=== PATIENT | male | born 1990 | race Caucasian/White ===

== ENCOUNTER 2024-08-09 15:56 | Emergency (ER) | payer SELFPAY ==
[~2024-08-09] VITALS: Ht 172.7 cm; Wt 68.0 kg
[2024-08-09 16:06] VITALS: BP 134/89; PULSE 81; RESP 15; TEMP 36.7; O2SAT 99
[2024-08-09] MEDS: LIDOCAINE HCL/PF 1% 10 MG/ML 5ML VIAL INFIL ONE (17:35)
[2024-08-09] MEDS ORDERED: CEPH500C2 MT (17:52)
[2024-08-09] MEDS: TETANUS, DIPHTHERIA, PERTUSSIS VAC/PF 0.5ML (>10YR OLD) IM ONE (18:58)
[2024-08-09] MEDS: BACITRACIN ZINC OINT UDPKT TOP ONE (19:00)
== END 2024-08-09 19:15 | disposition home or self-care (01) ==
LOC: ER 15:56
DX: S61.411A Laceration without foreign body of right hand, initial encounter (principal); Z23 Encounter for immunization; W45.8XXA Other foreign body or object entering through skin, initial encounter; Y93.89 Activity, other specified; Y92.89 Other specified places as the place of occurrence of the external cause; Y99.8 Other external cause status
CPT/HCPCS: 12001; 90471; 90715; 99283

== ENCOUNTER 2024-08-17 14:20 | Emergency (ER) | payer SELFPAY ==
[~2024-08-17] VITALS: Ht 165.1 cm; Wt 85.0 kg
[~2024-08-17 14:20] MED LIST: CEPH500C2 MT
[2024-08-17 14:22] VITALS: O2SAT 100
[2024-08-17 14:50] VITALS: BP 140/86; PULSE 96; RESP 18; TEMP 36.8; O2SAT 96
== END 2024-08-17 16:44 | disposition left against medical advice (07) ==
LOC: ER 14:20
DX: T14.8XXD Other injury of unspecified body region, subsequent encounter (principal); X58.XXXD Exposure to other specified factors, subsequent encounter
CPT/HCPCS: 99281